=== PATIENT | female | born 1985 | race Caucasian/White ===

== ENCOUNTER 2017-01-04 05:08 | Emergency (ER) | payer MEDICAID ==
[2017-01-04] MEDS ORDERED: Sodium Chloride 0.9% 2,000 ML IV ONE (05:44)
[2017-01-04] MEDS ORDERED: Sodium Chloride 0.9% 1,000 ML IV ONE (05:44)
[2017-01-04] MEDS ORDERED: Metoclopramide 5 mg/mL 2mL Vial IVP STA (05:45)
--- NOTE | 2017-01-04 05:52 | ED Physician Chart ---
Chief Complaint/HPI - Patient Information Date Seen:: 01/04/17 Time Seen:: 05:35 Chief Complaint:: abdominal pain and vomiting History of Present Illness:: Patient developed abdominal pain and vomiting 3-4 days ago. She has burning epigastric pain and sharp lower abdominal pain. She estimates she vomited more than 30 times. She was admitted to [facility] this hospital 3 days ago and discharged yesterday morning. Patient is 7 weeks by ultrasound. Patient is 4 para 3. She had a lot of vomiting during her first only. Allergies:: Allergies Allergy/AdvReac Type Severity Reaction Status Date / Time No Known Allergies Allergy Verified 01/04/17 05:18 Vitals:: Vital Signs - 8 hr 01/04/17 05:10 Temp 98.3 F HR 72 RR 18 BP 140/89 O2 Sat % 97 Historian:: Patient Review:: Nurse's Note Reviewed Review of Systems - Review of Systems General/Constitutional: No fever, No chills Skin: No skin lesions Head: No headache Eyes: No loss of vision ENT: No earache Neck: No neck pain Cardio Vascular: No chest pain Pulmonary: No SOB GI: Nausea, Vomiting G/U: No dysuria Legal Nurse Consultant: No abnormal vaginal bleed Musculoskeletal: No bone or joint pain Endocrine: No polyuria Psychiatric: No depression Hematopoietic: No bruising Allergic/Immuno: No urticaria Neurological: No syncope Past Medical History - Past Medical History Past Medical History: Other (kidney stones) Family History: None Social History: Non Smoker, No Alcohol Surgical History: None, Cholecystectomy Psychiatricy History: None Family Medical History - Family Member Mother History Unknown: Yes Physical Exam - Physical Examination General/Constitutional: Well-developed, well-nourished, Alert Head: Atraumatic Eyes: Lids, conjuctiva normal, PERRL Skin: Nl inspection, No rash, No skin lesions, No ecchymosis ENMT: External ears, nose nl, TM canals nl Neck: No nuchal rigidity Respiratory: Nl effort/Exclusion, Clear to Auscultation Cardio Vascular: RRR, No murmur, gallop, rubs, NL S1 S2 GI: No organomegaly, No hernia, Nondistended, No mass/bruits Other GI comments:: Epigastric and periumbilical tenderness : No CVA tenderness Extremities: No tenderness or effusion, Normal digits & nails Neuro/Psych: Alert/oriented, No focal deficits Misc: Normal back ED Septic Shock - <6hrs of presentation: Vital Signs: Vital Signs - 8 hr 01/04/17 05:10 Temp 98.3 F HR 72 RR 18 BP 140/89 O2 Sat % 97 Reassessment (Disposition) - Reassessment Reassessment Condition:: Improved - Diagnosis Diagnosis:: Hyperemesis gravidarum - Aftercare/Follow up Instructions Aftercare/Follow-Up Instructions:: Refer to Discharge Instructions Medication Prescribed:: Reglan 10 mg #24 to take 1 3 times a day as necessary - Patient Disposition Discharge/Transfer:: Home Condition at Disposition:: Stable, Improved
[2017-01-04] MEDS ORDERED: Metoclopramide 5 mg/mL 2mL Vial ONE (06:09)
[2017-01-04 06:21] LABS: URINE BILIRUBIN MODERATE (NEGATIVE); URINE BLOOD SMALL (NEGATIVE); URINE GLUCOSE (UA) NEGATIVE (NEGATIVE); URINE KETONE >=80 mg/dL (NEGATIVE); URINE PH 6.5 (4.6 - 8.0); URINE PROTEIN 30 mg/dL (NEGATIVE); URINE UROBILINOGEN >=8.0 E.U./dL (0.2 - 1.0)
[2017-01-04 06:21] LABS: % BASOPHILS 0.6 % (0.0-2.0); % EOSINOPHILS 0.5 % (0.0-5.0); % LYMPHOCYTES 15.5 % (20.0-50.0); % MONOCYTES 6.1 % (2.0-10.0); % NEUTROPHILS 77.3 % (40.0-80.0); HEMATOCRIT 38.2 % (35.0-45.0); HEMOGLOBIN 13.2 gm/dL (11.7-15.5); MEAN CELL VOLUME 89.9 fl (81-100); MEAN CORPUSCULAR HEMOGLOBIN 31.1 pg (27.0-31.0); MEAN CORPUSCULAR HGB CONC 34.6 pg (28.0-36.0); MEAN PLATELET VOLUME 7.2 fl; NEUTROPHILE ABSOLUTE 7.5 Th/cmm (1.8-8.0); PLATELET COUNT 271 Th/cmm (150-400); RED BLOOD COUNT 4.25 Mil/cmm (3.80-5.10); RED CELL DISTRIBUTION WIDTH 11.4 % (11.5-20.0); WHITE BLOOD COUNT 9.7 Th/cmm (4.8-10.8)
[2017-01-04 06:43] LABS: ANION GAP 12.2 (7.0-16.0); BUN - UREA NITROGEN 11 mg/dL (7-25); CALCIUM SERUM 9.5 mg/dL (8.6-10.3); CARBON DIOXIDE 22.1 mEq/L (21.0-31.0); CHLORIDE 102 mEq/L (98-107); CREATININE - SERUM 0.5 mg/dL (0.6-1.2); GLUCOSE 91 mg/dL (70-105); MAGNESIUM 2.1 mg/dL (1.9-2.7); POTASSIUM SERUM 3.3 mEq/L (3.5-5.1); SODIUM SERUM 133 mEq/L (136-145)
[2017-01-04 06:45] LABS: URINE BACTERIA OCCASIONAL /hpf (NONE SEEN); URINE EPITHELIAL CELLS MODERATE /lpf (FEW)
[2017-01-04] MEDS ORDERED: Lactated Ringer 1,000 ML IV ONE (07:10)
== END 2017-01-04 10:06 | disposition home or self-care (01) ==
LOC: ER 05:08
DX: O21.9 Vomiting of pregnancy, unspecified (principal); Z3A.01 Less than 8 weeks gestation of pregnancy
CPT/HCPCS: 99284; 96374; 36415; 85025; 81001; 81025; 83690; 83735; 80048; J2765; J7030; Z7502